=== PATIENT | female | born 1990 | race Two or more races ===

== ENCOUNTER → 2016-09-08 | Outpatient (REF) | payer MEDICAID, OTHER ==
[~2016-09-08] MED LIST: AMBI5TAB PO; CITA20TA4 PO; CLON0.2T PO; DEPA500T2 PO; EFFE150C PO; GABA-283 PO; HYDR10T PO; LATU1TAB PO; NEUR100C PO; PROP60TA14 PO; REME15TA PO; SERO200T PO; SERO50TA PO; WELLTAB38 PO; ZOFR20TA PO
== END ==
LOC: M SFHCLERA 17:19
PROVIDERS: ATTEND Physician Assistant
DX: R30.0 Dysuria (principal)

== ENCOUNTER 2016-11-29 12:15 | Emergency (ER) | payer MEDICAID, OTHER ==
[~2016-11-29] VITALS: Ht 160 cm; Wt 63.6 kg
[~2016-11-29 12:15] MED LIST changes: +HYDR-643 PO; -HYDR10T PO
[2016-11-29 12:17] VITALS: BP 124/75
[2016-11-29] MEDS ORDERED: GABA-282 (12:23)
[2016-11-29] MEDS ORDERED: SUBO8MIS (12:23)
[2016-11-29] MEDS ORDERED: IBUP-1022 PO (12:23)
[2016-11-29] MEDS ORDERED: NAPR500T PO (13:14)
[2016-11-29] MEDS ORDERED: PENI500T PO (13:14)
[2017-03-25] MEDS ORDERED: GABA-282 PO (08:02)
== END 2016-11-29 13:23 | disposition home or self-care (01) ==
LOC: M ED 12:15
DX: K04.7 Periapical abscess without sinus (principal); K02.9 Dental caries, unspecified; Z79.899 Other long term (current) drug therapy

== ENCOUNTER → 2017-06-17 | Outpatient (CLI) | payer OTHER | LOC: M RAD 16:08 | DX: O03.9 Complete or unspecified spontaneous abortion without complication (principal) | CPT/HCPCS: 76801 ==

== ENCOUNTER → 2018-03-18 | Outpatient (REF) | payer OTHER, MEDICAID | LOC: M SFHCLERA 17:17 | DX: N89.8 Other specified noninflammatory disorders of vagina (principal) ==

== ENCOUNTER → 2018-05-12 | Outpatient (REF) | payer OTHER, MEDICAID ==
[~2018-05-12] MED LIST changes: -EFFE150C PO; +EFFE150C2 PO; -GABA-283 PO; +GABA-843; +GABA-843 PO; +GABA-845 PO; +IBUP-1022 PO; +NAPR-50 PO; +PENI500T PO; +SUBO8MIS; -ZOFR20TA PO; +ZOFR4TAB16 PO
[2018-05-12 22:24] LABS: CHLAMYDIA DNA AMPLIFICATION NEGATIVE (NEGATIVE); GC DNA AMPLIFICATION NEGATIVE (NEGATIVE)
== END ==
LOC: M SFHCLERA 17:09
PROVIDERS: ATTEND Nurse Practitioner Family
DX: N89.8 Other specified noninflammatory disorders of vagina (principal)

== ENCOUNTER → 2018-08-27 | Outpatient (REF) | payer OTHER, MEDICAID ==
[~2018-08-27] MED LIST changes: -CITA20TA4 PO; +CITA20TA6 PO; -NAPR-50 PO; +NAPR-837 PO
[2018-08-27 20:56] LABS: CHLAMYDIA DNA AMPLIFICATION NEGATIVE (NEGATIVE); GC DNA AMPLIFICATION NEGATIVE (NEGATIVE)
== END ==
LOC: M SFHCLERA 15:38
PROVIDERS: ATTEND Nurse Practitioner Family
DX: R39.9 Unspecified symptoms and signs involving the genitourinary system (principal)

== ENCOUNTER 2018-09-17 18:46 | Emergency (ER) | payer MEDICAID, OTHER ==
[~2018-09-17] VITALS: Ht 160 cm; Wt 52.7 kg
[2018-09-17] MEDS ORDERED: CLON1TAB8 PO (18:50)
[2018-09-17] MEDS ORDERED: ISOVUE-370 76% 100ML VIAL (Q9967) As Ordered ONE (19:38)
[2018-09-17] MEDS ORDERED: NS 1,000 ML IV ONE (19:45)
[2018-09-17] MEDS ORDERED: KETOROLAC 30 MG/ML VIAL (J1885) IV ONE (19:45)
[2018-09-17] MEDS ORDERED: diphenhydrAMINE INJ 50MG/ML VIAL (J1200) IV ONE (19:45)
[2018-09-17] MEDS ORDERED: METOCLOPRAMIDE INJ 10MG/2ML VIAL (J2765) IV ONE (19:45)
[2018-09-17 20:01] LABS: BILIRUBIN, URINE MANUAL NEGATIVE (NEGATIVE); GLUCOSE, URINE (UA) MANUAL NEGATIVE (NEGATIVE); KETONE, URINE MANUAL NEGATIVE (NEGATIVE); UROBILINOGEN, URINE MANUAL NORMAL (NORMAL)
[2018-09-17 20:11] LABS: BACTERIA, URINE SMALL AMOUNT; RBC, URINE TNTC /hpf (0-3); SQUAMOUS EPITHELIAL CELL URINE SMALL AMOUNT /hpf (SMALL AMT)
[2018-09-17 20:13] LABS: HYALINE CAST, URINE NONE SEEN /lpf (0-1)
[2018-09-17 20:34] LABS: HEMOGLOBIN 11.9 g/dl (12.0-15.5); MEAN CORPUSCULAR HEMOGLOBIN 28.6 pg (27.0-33.0); MEAN CORPUSCULAR HGB CONC 33.1 g/dl (32.0-36.5); MEAN CORPUSCULAR VOLUME 86.5 fl (80.0-96.0); PLATELET COUNT, AUTOMATED 206 10^3/uL (150-450); RED BLOOD COUNT 4.16 10^6/uL (4.00-5.40); WHITE BLOOD COUNT 4.6 10^3/uL (4.0-10.0)
[2018-09-17 21:07] LABS: BLOOD UREA NITROGEN 15 MG/DL (7-18); CALCIUM LEVEL 8.3 MG/DL (8.5-10.1); CARBON DIOXIDE LEVEL 28 MEQ/L (21-32); CHLORIDE LEVEL 106 MEQ/L (98-107); CREATININE FOR GFR 0.66 MG/DL (0.55-1.30); GLOMERULAR FILTRATION RATE > 60.0 (>60); GLUCOSE, FASTING 85 MG/DL (70-100); SODIUM LEVEL 142 MEQ/L (136-145)
[2018-09-17 22:06] VITALS: BP 107/57
--- NOTE | 2018-09-17 22:27 | REPVR ---
EXAM: CT Head Without Contrast EXAM DATE/TIME: 09/17/2018 9:49 PM CLINICAL HISTORY: 27 years old, female; Pain; Headache not specified; Additional info: RO hemorrhage, aneurysm TECHNIQUE: Imaging protocol: Axial computed tomography images of the head/brain without contrast. Radiation optimization: All CT scans at this facility use at least one of these dose optimization techniques: automated exposure control; mA and/or kV adjustment per patient size (includes targeted exams where dose is matched to clinical indication); or iterative reconstruction. COMPARISON: No relevant prior studies available. FINDINGS: Brain: Normal. No hemorrhage. No significant white matter disease. No edema. Ventricles: Normal. No ventriculomegaly. Bones/joints: Unremarkable. No acute fracture. Sinuses: Mild ethmoid sinusitis. Right frontal sinusitis. Mastoid air cells: Visualized mastoid air cells are unremarkable. No mastoid effusion. Soft tissues: Unremarkable. IMPRESSION: No acute intracranial findings. Electronically signed by: Tam Mendes On 09/17/2018 22:26:55 PM
--- NOTE | 2018-09-17 22:33 | REPVR ---
EXAM: CT Angiography Head With Contrast EXAM DATE/TIME: 09/17/2018 9:49 PM CLINICAL HISTORY: 27 years old, female; Pain; Headache; Additional info: RO hemorrhage TECHNIQUE: Imaging protocol: Axial computed tomographic angiography images of the head with intravenous contrast using CT angiography protocol. Coronal and sagittal reformatted images were created and reviewed. 3D rendering: MIP reconstructed images were created and reviewed. Radiation optimization: All CT scans at this facility use at least one of these dose optimization techniques: automated exposure control; mA and/or kV adjustment per patient size (includes targeted exams where dose is matched to clinical indication); or iterative reconstruction. Contrast material: ISOVUE 370; Contrast volume: 75 ml; Contrast route: IV; COMPARISON: No relevant prior studies available. FINDINGS: Right internal carotid artery: Unremarkable. Intracranial segment is patent with no significant stenosis. No aneurysm. Right anterior cerebral artery: Unremarkable. No occlusion or significant stenosis. No aneurysm. Right middle cerebral artery: Unremarkable. No occlusion or significant stenosis. No aneurysm. Right posterior cerebral artery: Persistent origin of the right posterior cerebral artery. Right vertebral artery: Unremarkable. No occlusion or significant stenosis. No aneurysm. Left internal carotid artery: Unremarkable. Intracranial segment is patent with no significant stenosis. No aneurysm. Left anterior cerebral artery: Unremarkable. No occlusion or significant stenosis. No aneurysm. Left middle cerebral artery: Unremarkable. No occlusion or significant stenosis. No aneurysm. Left posterior cerebral artery: Unremarkable. No occlusion or significant stenosis. No aneurysm. Left vertebral artery: Unremarkable. No occlusion or significant stenosis. No aneurysm. Basilar artery: Unremarkable. No occlusion or significant stenosis. No aneurysm. IMPRESSION: No acute findings. Electronically signed by: Tam Mendes On 09/17/2018 22:32:43 PM
[2018-09-17] MEDS ORDERED: FLUTISP (22:39)
[2018-09-17] MEDS ORDERED: CLAR10CA3 PO (22:39)
[2018-09-17] MEDS ORDERED: MACR100C43 PO (22:42)
== END 2018-09-17 22:56 | disposition home or self-care (01) ==
LOC: M ED 18:46
DX: J01.90 Acute sinusitis, unspecified (principal); N39.0 Urinary tract infection, site not specified; F33.9 Major depressive disorder, recurrent, unspecified; F41.9 Anxiety disorder, unspecified; Z79.899 Other long term (current) drug therapy; F19.21 Other psychoactive substance dependence, in remission; Z87.891 Personal history of nicotine dependence
CPT/HCPCS: 70450; 70496; 80048; 81000; 81025; 85027; 87086; 96361; 96374; 96375; 99284; J1200; J1885; J2765; Q9967

== ENCOUNTER → 2018-11-02 | Outpatient (REF) | payer OTHER, MEDICAID ==
[~2018-11-02] MED LIST changes: +CLAR10CA3 PO; +CLON1TAB8 PO; +FLUTISP; +MACR100C43 PO
[2018-11-02 21:46] LABS: CHLAMYDIA DNA AMPLIFICATION NEGATIVE (NEGATIVE); GC DNA AMPLIFICATION NEGATIVE (NEGATIVE)
== END ==
LOC: M SFHCLERA 12:35
PROVIDERS: ATTEND Physician Assistant
DX: N89.8 Other specified noninflammatory disorders of vagina (principal)

== ENCOUNTER → 2019-01-16 | Outpatient (REF) | payer OTHER, MEDICAID ==
[2019-01-16 18:20] LABS: CHLAMYDIA DNA AMPLIFICATION POSITIVE (NEGATIVE); GC DNA AMPLIFICATION NEGATIVE (NEGATIVE)
== END ==
LOC: M SFHCLERA 12:49
PROVIDERS: ATTEND Nurse Practitioner Family
DX: N89.8 Other specified noninflammatory disorders of vagina (principal)

== ENCOUNTER → 2019-02-08 | Outpatient (REF) | payer OTHER, MEDICAID | LOC: M SFHCLERA 20:12 | PROVIDERS: ATTEND Physician Assistant | DX: R50.9 Fever, unspecified (principal) ==

== ENCOUNTER → 2019-06-02 | Outpatient (REF) | payer OTHER, MEDICAID ==
[2019-06-02 19:59] LABS: CHLAMYDIA DNA AMPLIFICATION NEGATIVE (NEGATIVE); GC DNA AMPLIFICATION NEGATIVE (NEGATIVE)
== END ==
LOC: M SFHCLERA 15:52
PROVIDERS: ATTEND Physician Assistant
DX: N89.8 Other specified noninflammatory disorders of vagina (principal)

== ENCOUNTER → 2019-09-06 | Outpatient (REF) | payer OTHER, MEDICAID ==
[2019-09-06 17:59] LABS: CHLAMYDIA DNA AMPLIFICATION NEGATIVE (NEGATIVE); GC DNA AMPLIFICATION NEGATIVE (NEGATIVE)
== END ==
LOC: M SFHCLERA 14:01
PROVIDERS: ATTEND Nurse Practitioner Family
DX: N89.8 Other specified noninflammatory disorders of vagina (principal)